=== PATIENT | female | born 1975 ===

== ENCOUNTER 2021-03-22 21:38 | Inpatient (IN) ==
[2021-03-22] MEDS ORDERED: Droperidol 5 MG/2 ML 2 ML VIAL ONE (21:58)
[2021-03-22] MEDS ORDERED: Propofol 10 mg/ml 100 ML BTL 100 ML ONE (22:05)
[2021-03-22] MEDS ORDERED: Midazolam 2 mg/2 ml VIAL 1 mg/ml 2 ml VIAL (2 mg) ONE (22:24)
[2021-03-22] MEDS ORDERED: NS 0.9% 1000 ml BAG 1,000 ML IV ONE (22:33)
[2021-03-22] MEDS ORDERED: Succinylcholine 200 mg VIAL 20 mg/ml 10 ml VIAL (200 mg) IV ONE (22:35)
[2021-03-22] MEDS ORDERED: Midazolam 2 mg/2 ml VIAL 1 mg/ml 2 ml VIAL (2 mg) IM ONE (22:35)
[2021-03-22] MEDS ORDERED: Etomidate 20 mg/10 ml 2 MG/ML 10 ml VIAL IV ONE (22:35)
[2021-03-22] MEDS ORDERED: Droperidol 5 MG/2 ML 2 ML VIAL IM ONE (22:35)
[2021-03-22] MEDS ORDERED: Midazolam 2 mg/2 ml VIAL 1 mg/ml 2 ml VIAL (2 mg) IV SLOW PU ONE (22:37)
[2021-03-22 22:54] LABS: Hematocrit 39 % (35-47); Hemoglobin 12.6 g/dL (12.0-16.0); Mean Corpuscular HGB Conc 32 g/dL (31-36); Mean Corpuscular Hemoglobin 30 pg (27-31); Mean Corpuscular Volume 94 fL (80-97); Mean Platelet Volume 10.3 fL (7.4-10.4); Platelet Count 241 10^3/uL (150-450); Red Cell Distribution Width 13 % (10-15); White Blood Count 29.4 10^3/uL (3.5-10.8)
[2021-03-22] MEDS ORDERED: Midazolam 5 mg/5 ml VIAL 1 mg/ml 5 ml VIAL (5 mg) IV SLOW PU ONE (22:55)
[2021-03-22] MEDS ORDERED: Midazolam 10 mg/10 ml VIAL 1 mg/ml 10 ml VIAL (10 mg) IV SLOW PU ONE (22:55)
[2021-03-22] MEDS ORDERED: Piperacillin/Tazobac ADVAN 3.375 GM in NS 0.9% 100 ml BAG 100 ML IV ONE (22:56)
[2021-03-22] MEDS ORDERED: Midazolam 10 mg/10 ml VIAL 1 mg/ml 10 ml VIAL (10 mg) ONE (22:56)
[2021-03-22] MEDS ORDERED: Dexmedetomidine 1,000 MCG in NS 0.9% 250 ml 240 ML IV SCH (23:00)
[2021-03-22] MEDS ORDERED: Propofol 10 mg/ml 100 ML BTL 100 ML IV SCH (23:00)
[2021-03-22 23:02] LABS: Acetaminophen < 15 mcg/mL; Alcohol, S < 13 mg/dL (<13); Salicylate < 2.50 mg/dL (<30)
[2021-03-22 23:04] LABS: ALT 69 U/L (7-52); Albumin 3.7 g/dL (3.2-5.2); Albumin/Globulin Ratio 0.7 (1-3); Alkaline Phosphatase 86 U/L (35-149); Blood Urea Nitrogen 12 mg/dL (6-24); CO2 Carbon Dioxide 25 mmol/L (22-32); Calcium 8.8 mg/dL (8.6-10.3); Chloride 97 mmol/L (101-111); Creatine Kinase 147 U/L (10-223); EGFR African American 44.2 (>60); EGFR Non-African American 36.5 (>60); Glucose 262 mg/dL (70-100); Sodium 137 mmol/L (135-145); Total Protein 8.7 g/dL (6.4-8.9)
[2021-03-22 23:37] LABS: Anion Gap 15 mmol/L (2-11)
[2021-03-22 23:50] LABS: Rapid COVID-19 Molecular Detected (Undetected)
[2021-03-22 23:54] LABS: ABS Basophils 0.1 10^3/ul (0-0.2); ABS Eosinophils 0.2 10^3/ul (0-0.6); ABS Lymphocytes 6.1 10^3/ul (1.0-4.8); ABS Monocytes 1.2 10^3/ul (0-0.8); ABS Neutrophils 21.7 10^3/ul (1.5-7.7); Eosinophil % 0.8 %; Lymphocyte % 20.8 %; Nucleated Red Blood Cells % 0.1
[2021-03-22] MEDS ORDERED: Lactated Ringers 1000 ml BAG 1,000 ML IV ONE (23:57)
[2021-03-23] LABS: Urine Appearance Cloudy; Urine Bilirubin Negative (Negative); Urine Blood 3+ (Negative); Urine Color Yellow; Urine Glucose 2+(150 mg/dL) (Negative); Urine Ketones Negative (Negative); Urine Nitrite Negative (Negative); Urine Protein 2+(100 mg/dL) (Negative); Urine Specific Gravity 1.008 (1.002-1.030); Urine Urobilinogen Negative (Negative)
[2021-03-23 00:02] LABS: Urine Bacteria Absent (Absent); Urine Benzodiazepine Screen Presumptive Positive (None Detect); Urine Cannabinoids Screen None Detected (None Detect); Urine Opiates Screen None Detected (None Detect); Urine Red Blood Cell 3+(>10/hpf) (Absent); Urine White Blood Cell Absent (Absent)
[2021-03-23 01:15] LABS: PCO2 Arterial 54 mmHg (35-45); PO2 Arterial 91 mmHg (80-100)
[2021-03-23 01:27] LABS: Influenza A Molecular Negative (Negative); Influenza B Molecular Negative (Negative)
[2021-03-23 01:42] LABS: Potassium Redraw 2.6 mmol/L (3.5-5.0)
[2021-03-23] MEDS ORDERED: Potassium Chloride LIQUID 20 MEQ/15 ML LIQUID PEG TUBE ONE (01:45)
[2021-03-23] MEDS ORDERED: Piperacillin/Tazobac ADVAN 3.375 GM in NS 0.9% 100 ml BAG 100 ML IV ONE (05:24)
[2021-03-23] MEDS ORDERED: Dexamethasone IV 4 MG/ML 5 ML VIAL (20 MG) IVPB ONE (05:49)
[2021-03-23] MEDS ORDERED: Remdesivir 100 mg Vial 200 MG in NS 0.9% 250 ml 210 ML IV ONE ×2 (05:50→13:02)
[2021-03-23] MEDS ORDERED: Zosyn per Pharmacy NOTE FOLLOW UP SCH (06:00)
[2021-03-23 06:33] LABS: ABS Basophils 0.1 10^3/ul (0-0.2); ABS Eosinophils 0.1 10^3/ul (0-0.6); ABS Lymphocytes 2.5 10^3/ul (1.0-4.8); ABS Monocytes 1.1 10^3/ul (0-0.8); ABS Neutrophils 16.5 10^3/ul (1.5-7.7); Eosinophil % 0.3 %; Hematocrit 33 % (35-47); Hemoglobin 10.8 g/dL (12.0-16.0); Lymphocyte % 12.2 %; Mean Corpuscular HGB Conc 33 g/dL (31-36); Mean Corpuscular Hemoglobin 30 pg (27-31); Mean Corpuscular Volume 92 fL (80-97); Mean Platelet Volume 9.7 fL (7.4-10.4); Platelet Count 166 10^3/uL (150-450); Red Cell Distribution Width 13 % (10-15); White Blood Count 20.2 10^3/uL (3.5-10.8)
[2021-03-23 06:54] LABS: ALT 43 U/L (7-52); AST 46 U/L (13-39); Albumin 2.8 g/dL (3.2-5.2); Albumin/Globulin Ratio 0.7 (1-3); Alkaline Phosphatase 43 U/L (35-149); Anion Gap 6 mmol/L (2-11); Blood Urea Nitrogen 12 mg/dL (6-24); C Reactive Protein 82.82 mg/L (<8.01); CO2 Carbon Dioxide 31 mmol/L (22-32); Calcium 7.9 mg/dL (8.6-10.3); Chloride 104 mmol/L (101-111); EGFR African American 56.3 (>60); EGFR Non-African American 46.6 (>60); Globulin 3.8 g/dL (2-4); Glucose 91 mg/dL (70-100); Magnesium 1.6 mg/dL (1.9-2.7); Potassium 3.4 mmol/L (3.5-5.0); Sodium 141 mmol/L (135-145); Total Protein 6.6 g/dL (6.4-8.9)
[2021-03-23] MEDS ORDERED: Magnesium Sulfate IV 3 GM in NS 0.9% 100 ml BAG 100 ML IVPB ONE (06:57)
[2021-03-23 07:02] LABS: Troponin I 0.07 ng/mL (<0.03)
[2021-03-23] MEDS ORDERED: Vancomycin per Pharmacy 1 EA NOTE FOLLOW UP PRN (07:44)
[2021-03-23] MEDS ORDERED: Vancomycin 1,000 MG in NS 0.9% 250 ml 250 ML IVPB ONE (08:00)
[2021-03-23] MEDS ORDERED: Dexmedetomidine 1,000 MCG in NS 0.9% 250 ml 240 ML IV SCH (08:00)
[2021-03-23] MEDS: ZOSYN 3.375 GM Q8H per EXTENDED INFUSION IV SCH ×2 (08:00→16:17)
[2021-03-23] MEDS ORDERED: Propofol 10 mg/ml 100 ML BTL 100 ML IV SCH (08:00)
[2021-03-23] MEDS ORDERED: fentaNYL 100 mcg/2 ml 50 MCG/ML VIAL IV SLOW PU PRN (08:07)
[2021-03-23] MEDS ORDERED: fentaNYL 100 mcg/2 ml 50 MCG/ML VIAL ONE (08:08)
[2021-03-23] MEDS ORDERED: Magnesium Sulf 4 GM/100 ML IV 4,000 MG/100 ML BAG IVPB ONE (08:10)
[2021-03-23 08:35] LABS: Phosphorus 3.6 mg/dL (2.5-5.0)
[2021-03-23] MEDS: Remdesivir 100 mg Vial 100 MG in NS 0.9% 250 ml 230 ML IV SCH (10:12)
[2021-03-23] MEDS ORDERED: Remdesivir 100 mg Vial 100 MG in NS 0.9% 100 ml BAG 100 ML IV SCH (10:15)
[2021-03-23] MEDS: KCL 20 MEQ/100 ML IVPREMIX 20 MEQ/100 ML BAG IV SCH ×3 (10:18→16:30)
[2021-03-23] MEDS: Pantoprazole VIAL 40 MG VIAL IV SCH (11:25)
[2021-03-23] MEDS ORDERED: Lorazepam PYXIS KEY PRN (12:50)
[2021-03-23] MEDS: Dexamethasone IV 4 MG/ML VIAL 1 ml VIAL IV SLOW PU SCH (14:16)
[2021-03-23] MEDS: Baricitinib 2 MG TAB (NF) PO SCH ×2 (14:17→16:19)
[2021-03-23] MEDS: Chlorhexidine MOUTHWASH 0.12% 15 ML UDC SWISH SPIT SCH (16:19)
[2021-03-23] MEDS: Vancomycin 750 MG in NS 0.9% 250 ML IVPB SCH (21:20)
[2021-03-24] MEDS: Vancomycin 750 MG in NS 0.9% 250 ML IVPB SCH (07:04)
[2021-03-24] MEDS: ZOSYN 3.375 GM Q8H per EXTENDED INFUSION IV SCH ×2 (07:04)
[2021-03-24] MEDS: Dexamethasone IV 4 MG/ML VIAL 1 ml VIAL IV SLOW PU SCH (07:16)
[2021-03-24] MEDS: Pantoprazole VIAL 40 MG VIAL IV SCH (07:16)
[2021-03-24 07:48] LABS: Troponin I 0.04 ng/mL (<0.03)
[2021-03-24] MEDS: Remdesivir 100 mg Vial 100 MG in NS 0.9% 250 ml 230 ML IV SCH (08:38)
[2021-03-24] MEDS ORDERED: Remdesivir 100 mg Vial 100 MG in NS 0.9% 250 ml 230 ML IV SCH (09:00)
[2021-03-24] MEDS ORDERED: Dexamethasone IV 4 MG/ML VIAL 1 ml VIAL IV SLOW PU SCH (09:00)
[2021-03-24] MEDS ORDERED: Potassium Chlor 20 meq TAB.ER PO ONE (09:50)
[2021-03-24] MEDS ORDERED: Magnesium Sulfate 2 gm BAG 2 GM/50 ML BAG IVPB ONE (09:51)
[2021-03-24] MEDS ORDERED: KCL 20 MEQ/100 ML IVPREMIX 20 MEQ/100 ML BAG IV ONE (09:58)
[2021-03-24] MEDS: Baricitinib 2 MG TAB (NF) PO SCH (12:14)
[2021-03-24 15:52] LABS: Hematocrit 36 % (35-47); Hemoglobin 12.1 g/dL (12.0-16.0); Mean Corpuscular HGB Conc 34 g/dL (31-36); Mean Corpuscular Hemoglobin 31 pg (27-31); Mean Corpuscular Volume 91 fL (80-97); Mean Platelet Volume 9.8 fL (7.4-10.4); Platelet Count 290 10^3/uL (150-450); Red Blood Count 3.95 10^6 /uL (3.70-4.87); Red Cell Distribution Width 13 % (10-15); White Blood Count 13.5 10^3/uL (3.5-10.8)
[2021-03-24 16:12] LABS: Calcium 8.4 mg/dL (8.6-10.3); EGFR Non-African American 40.5 (>60); Magnesium 2.7 mg/dL (1.9-2.7); Potassium 4.1 mmol/L (3.5-5.0)
[2021-03-24 17:05] LABS: Phosphorus 3.7 mg/dL (2.5-5.0)
[2021-03-24] MEDS: Enoxaparin 30 MG/0.3 ML SYR SUBCUT SCH (19:44)
[2021-03-25] MEDS: LORazepam 2 mg VIAL 1 ml IV PUSH PRN ×2 (01:07→05:01)
[2021-03-25 05:35] LABS: ABS Lymphocytes 2.7 10^3/ul (1.0-4.8); ABS Monocytes 0.8 10^3/ul (0-0.8); ABS Neutrophils 9.9 10^3/ul (1.5-7.7); Eosinophil % 0.1 %; Hematocrit 33 % (35-47); Hemoglobin 10.7 g/dL (12.0-16.0); Lymphocyte % 19.9 %; Mean Corpuscular HGB Conc 33 g/dL (31-36); Mean Corpuscular Hemoglobin 30 pg (27-31); Mean Corpuscular Volume 91 fL (80-97); Mean Platelet Volume 9.7 fL (7.4-10.4); Platelet Count 247 10^3/uL (150-450); Red Blood Count 3.57 10^6 /uL (3.70-4.87); Red Cell Distribution Width 13 % (10-15); White Blood Count 13.5 10^3/uL (3.5-10.8)
[2021-03-25 05:42] LABS: INR 1.36 (0.86-1.15)
[2021-03-25 05:54] LABS: Albumin 2.7 g/dL (3.2-5.2); Albumin/Globulin Ratio 0.8 (1-3); Calcium 8.2 mg/dL (8.6-10.3); EGFR African American 54.3 (>60); EGFR Non-African American 44.9 (>60); Globulin 3.5 g/dL (2-4); Magnesium 2.2 mg/dL (1.9-2.7); Potassium 3.8 mmol/L (3.5-5.0); Total Bilirubin 0.4 mg/dL (0.2-1.0); Total Protein 6.2 g/dL (6.4-8.9)
[2021-03-25] MEDS: Pantoprazole VIAL 40 MG VIAL IV SCH (08:01)
[2021-03-25] MEDS: Enoxaparin 30 MG/0.3 ML SYR SUBCUT SCH (08:01)
[2021-03-25] MEDS: Dexamethasone IV 4 MG/ML VIAL 1 ml VIAL IV SLOW PU SCH (08:01)
[2021-03-25 08:20] VITALS: BP 129/71
[2021-03-25] MEDS ORDERED: Vancomycin Trough Check NOTE FOLLOW UP ONE (08:30)
[2021-03-25] MEDS: Remdesivir 100 mg Vial 100 MG in NS 0.9% 250 ml 230 ML IV SCH (09:13)
[2021-03-25] MEDS: Baricitinib 2 MG TAB (NF) PO SCH (10:19)
== END 2021-03-25 11:20 | disposition left against medical advice (07) | DRG 917 ==
LOC: ED 21:38 → SUATTDRO 03-23 05:19 → EDHOLD 03-23 05:19 → ICU 03-23 06:55 → MED 03-24 14:29
PROVIDERS: ADMIT Internal Medicine; ATTEND Internal Medicine